=== PATIENT | male | born 1965 | race Caucasian/White ===

== ENCOUNTER → 2020-12-03 17:47 | Outpatient (CLI) | payer MEDICAID, SELFPAY ==
[2020-12-03 18:25] LABS: Basophils # 0.2 K/mm3 (0-0.2); Basophils % 1.5 % (0.1-2.0); Eosinophils # 0.1 K/mm3 (0.0-0.4); Eosinophils % 1.1 % (0.1-12.0); Hematocrit 45.8 % (42.0-52.0); Hemoglobin 14.8 g/dL (14.1-18.0); Lymphocytes # 2.5 K/mm3 (0.7-4.5); Lymphocytes % 20.8 % (10-50); Mean Corpuscular HGB Conc 32.4 g/dL (31.8-35.4); Mean Corpuscular Hemoglobin 28.5 pg (27.0-31.2); Mean Corpuscular Volume 87.8 fl (80-94); Mean Platelet Volume 11.1 fl (7.4-10.4); Monocytes # 0.8 K/mm3 (0.1-1.0); Monocytes % 6.7 % (1.7-9.3); Neutrophils # 8.2 K/mm3 (1.8-7.8); Neutrophils % 69.9 % (37.0-80.0); Platelet Count 420 K/mm3 (142-424); Red Blood Count 5.21 M/mm3 (4.60-6.20); Red Cell Distribution Width 14.6 % (11.5-17.5); White Blood Count 11.8 K/mm3 (4.8-10.8)
[2020-12-03 18:29] LABS: Alanine Aminotransferase 26 U/L (12-78); Albumin Level 4.8 g/dl (3.5-5.0); Albumin/Globulin Ratio 1.8 (1.1-1.8); Alkaline Phosphatase 83 U/L (38-126); Anion Gap 17.6 mEq/L (5-15); Aspartate Amino Transferase 30 U/L (17-59); Bilirubin,Total 0.5 mg/dl (0.2-1.3); Blood Urea Nitrogen 14 mg/dl (9-20); Calcium 9.3 mg/dl (8.4-10.2); Carbon Dioxide 26 mmol/L (22.0-30.0); Chloride 103 mmol/L (98-107); Chol/HDL Ratio 3.4 (1-3.5); Cholesterol 178 mg/dl (140-200); Estimated Glomerular Filt Rate 87 ml/min (>60); GFR (African American) 106 ML/MIN (>60); Globulin 2.7 g/dL (1.3-3.2); Glucose 97 mg/dl (74-100); HDL Cholesterol 52 mg/dl (40-60); Potassium 4.6 mmoL/L (3.5-5.1); Sodium 142 mmol/L (136-145); Total Protein,Serum 7.5 g/dl (6.3-8.2); Triglycerides 95 mg/dl (30-150); VLDL Cholesterol 19 mg/dL (0-40)
[2020-12-03 18:40] LABS: Direct LDL Cholesterol 99.73 mg/dL (100-129)
[2020-12-03 18:46] LABS: 25-OH Vitamin D, Total 23.3 ng/mL (30-100)
[2020-12-03 18:48] LABS: T4 (Thyroxine) 9.7 ug/dl (5.53-11.0)
[2020-12-03 18:59] LABS: Prostate Specific Ag Screen 0.2 ng/ml (0.0-4.0)
[2020-12-03 19:02] LABS: Thyroid Stimulating Hormone 1.66 uIU/mL (0.465-4.68)
== END ==
PROVIDERS: Visit Provider Nurse Practitioner Family
DX: J44.9 Chronic obstructive pulmonary disease, unspecified (principal); R53.83 Other fatigue; E55.9 Vitamin D deficiency, unspecified; Z12.5 Encounter for screening for malignant neoplasm of prostate
CPT/HCPCS: 80053; 80061; 82306; 84436; 84443; 85025; G0103

== ENCOUNTER → 2020-12-18 14:19 | Outpatient (CLI) | payer MEDICAID, SELFPAY | PROVIDERS: PCP Nurse Practitioner Family; Visit Provider Nurse Practitioner Family | DX: R07.9 Chest pain, unspecified (principal) | CPT/HCPCS: 93306 ==

== ENCOUNTER → 2021-03-22 11:40 | Outpatient (CLI) | payer MEDICAID, SELFPAY | PROVIDERS: PCP Nurse Practitioner Family; Visit Provider Nurse Practitioner Family | DX: Z20.822 Contact with and (suspected) exposure to COVID-19 (principal) ==

== ENCOUNTER → 2021-03-22 12:28 | Outpatient (CLI) | payer MEDICAID, SELFPAY | PROVIDERS: Visit Provider Ophthalmology | DX: Z20.822 Contact with and (suspected) exposure to COVID-19 (principal) | CPT/HCPCS: U0003 ==

== ENCOUNTER 2021-03-25 07:13 | Day surgery (SDC) | payer MEDICAID, SELFPAY ==
[2021-03-18 15:56] VITALS: BMI 19.0
[2021-03-25] VITALS (8 sets, daily range): BP systolic 114–129; BP diastolic 61–87; PULSE 72–85; RESP 18–20; TEMP 36.6–36.7; O2SAT 95–99
== END 2021-03-25 10:02 | disposition home or self-care (01) ==
LOC: OR 07:14
PROVIDERS: PCP Nurse Practitioner Family; Visit Provider Ophthalmology
PROC: (CPT 66982; principal; 2021-03-25 09:30)
DX: H25.812 Combined forms of age-related cataract, left eye (principal); H53.8 Other visual disturbances; H21.532 Iridodialysis, left eye
CPT/HCPCS: 66982; V2632

== ENCOUNTER → 2021-04-05 11:02 | Outpatient (CLI) | payer MEDICAID, SELFPAY | PROVIDERS: Visit Provider Ophthalmology | DX: Z20.822 Contact with and (suspected) exposure to COVID-19 (principal) | CPT/HCPCS: U0003 ==

== ENCOUNTER 2021-04-08 08:09 | Day surgery (SDC) | payer MEDICAID, SELFPAY ==
[2021-04-02 11:22] VITALS: BMI 16.1
[2021-04-08] VITALS (7 sets, daily range): BP systolic 111–157; BP diastolic 57–83; PULSE 63–95; RESP 16–18; TEMP 36.1–36.2; O2SAT 93–100
== END 2021-04-08 10:26 | disposition home or self-care (01) ==
LOC: OR 08:11
PROVIDERS: PCP Nurse Practitioner Family; Visit Provider Ophthalmology
PROC: (CPT 66984; principal; 2021-04-08 10:00)
DX: H25.813 Combined forms of age-related cataract, bilateral (principal); H02.831 Dermatochalasis of right upper eyelid; H02.834 Dermatochalasis of left upper eyelid; J45.909 Unspecified asthma, uncomplicated; M19.90 Unspecified osteoarthritis, unspecified site
CPT/HCPCS: 66984; V2632

== ENCOUNTER → 2023-06-22 07:09 | Outpatient (CLI) | payer MEDICAID, SELFPAY | PROVIDERS: PCP Internal Medicine Pulmonary Disease; Visit Provider Internal Medicine Pulmonary Disease | DX: R06.02 Shortness of breath (principal) ==

== ENCOUNTER → 2023-06-22 14:15 | Outpatient (CLI) | payer MEDICAID, SELFPAY ==
[2023-06-22 18:37] LABS: Basophils # 0.4 K/mm3 (0-0.2); Basophils % 3.7 % (0.1-2.0); Eosinophils # 0.9 K/mm3 (0.0-0.4); Eosinophils % 7.4 % (0.1-12.0); Hemoglobin 13.2 g/dL (14.1-18.0); Lymphocytes # 3.9 K/mm3 (0.7-4.5); Lymphocytes % 32.5 % (10-50); Mean Corpuscular HGB Conc 33.1 g/dL (31.8-35.4); Mean Corpuscular Hemoglobin 28.9 pg (27.0-31.2); Mean Corpuscular Volume 87.3 fl (80-94); Mean Platelet Volume 13.2 fl (7.4-10.4); Monocytes # 0.7 K/mm3 (0.1-1.0); Monocytes % 6.1 % (1.7-9.3); Neutrophils % 50.2 % (37.0-80.0); Red Blood Count 4.58 M/mm3 (4.60-6.20); Red Cell Distribution Width 15.8 % (11.5-17.5); White Blood Count 11.9 K/mm3 (4.8-10.8)
[2023-06-22 18:42] LABS: Platelet Count 1377 K/mm3 (142-424)
[2023-06-22 19:29] LABS: Alanine Aminotransferase 23 U/L (12-78); Albumin Level 4.6 g/dl (3.5-5.0); Albumin/Globulin Ratio 1.7 (1.1-1.8); Alkaline Phosphatase 69 U/L (38-126); Anion Gap 17.2 mEq/L (5-15); Aspartate Amino Transferase 30 U/L (17-59); Bilirubin,Total 0.5 mg/dl (0.2-1.3); Blood Urea Nitrogen 11 mg/dl (9-20); Calcium 9.1 mg/dl (8.4-10.2); Carbon Dioxide 23 mmol/L (22.0-30.0); Chloride 104 mmol/L (98-107); Chol/HDL Ratio 3.7 (1-3.5); Cholesterol 123 mg/dl (140-200); Estimated Glomerular Filt Rate 99 ml/min (>60); GFR (African American) 120 ML/MIN (>60); Globulin 2.7 g/dL (1.3-3.2); Glucose 96 mg/dl (74-100); HDL Cholesterol 33 mg/dl (40-60); Sodium 138 mmol/L (136-145); Total Protein,Serum 7.3 g/dl (6.3-8.2); Triglycerides 113 mg/dl (30-150); VLDL Cholesterol 23 mg/dL (0-40)
[2023-06-22 19:41] LABS: Direct LDL Cholesterol 70.99 mg/dL (100-129)
[2023-06-22 19:45] LABS: T4 (Thyroxine) 7.8 ug/dl (5.53-11.0)
[2023-06-22 19:46] LABS: 25-OH Vitamin D, Total 46.1 ng/mL (30-100)
[2023-06-22 19:58] LABS: Prostate Specific Ag Screen 0.3 ng/ml (0.0-4.0); Thyroid Stimulating Hormone 0.72 uIU/mL (0.465-4.68)
[2023-06-22 20:55] LABS: Potassium 6.2 mmoL/L (3.5-5.1)
== END ==
LOC: LAB.DROPOF 07-06 14:16
PROVIDERS: PCP Emergency Medicine; Visit Provider Emergency Medicine
DX: R94.31 Abnormal electrocardiogram [ECG] [EKG] (principal); Z12.5 Encounter for screening for malignant neoplasm of prostate
CPT/HCPCS: 80053; 80061; 82306; 84436; 84443; 85025; G0103

== ENCOUNTER 2023-06-22 23:02 | Emergency (ER) | payer MEDICAID, SELFPAY ==
[2023-06-22 23:11] VITALS: BP 139/77; PULSE 77; RESP 20; TEMP 36.6; O2SAT 95; BMI 16.6
--- NOTE | 2023-06-22 23:18 | ECG_ITS ---
APPROVED REPORT Exam: Resting ECG HR:73 bpm ECG Measurements Heart Rate 73 AXES [place] 128 P 80 QRSd 120 QRS 99 QT 400 T 66 QTc 426 Conclusion SINUS RHYTHM RIGHT BUNDLE BRANCH BLOCK [120+ ms QRS DURATION, UPRIGHT V1, 40+ ms S IN I/aVL/V4/V5/V6] ABNORMAL ECG UNCONFIRMED REPORT Electronically signed by : Trey Jarrell MD 06/26/2023 11:09:24
--- NOTE | 2023-06-22 23:32 | XR_ITS ---
PROCEDURE INFORMATION: Exam: XR Chest Exam date and time: 06/22/2023 11:57 PM Age: 58 years old Clinical indication: Other: Chronic fatigue; Additional info: Chronic fatigue, severe thrombocytosis TECHNIQUE: Imaging protocol: Radiologic exam of the chest. Views: 1 view. COMPARISON: No relevant prior studies available. FINDINGS: Lungs: There is mild coarsening of the bronchovascular markings with hyperinflation suggesting underlying obstructive airways disease. Pleural spaces: Left costophrenic angle is excluded. Heart/Mediastinum: No evidence of mediastinal widening or cardiac silhouette enlargement; the mediastinum and heart appear within normal limits for contour and size. Bones/joints: No evidence of acute osseous abnormalities within the visualized portions of the thoracic spine and ribs. Osseous structures appear appropriate for patient age. IMPRESSION: No dense parenchymal consolidation, pleural effusion, or pneumothorax.
[2023-06-22 23:45] VITALS: BP 144/65; PULSE 64; O2SAT 97
[2023-06-23] VITALS: BP 129/68; PULSE 70; RESP 18; TEMP 37; O2SAT 96
[2023-06-23 00:03] LABS: Basophils # 0.5 K/mm3 (0-0.2); Basophils % 3.7 % (0.1-2.0); Eosinophils # 0.9 K/mm3 (0.0-0.4); Eosinophils % 7.3 % (0.1-12.0); Hematocrit 40.1 % (42.0-52.0); Hemoglobin 13.5 g/dL (14.1-18.0); Lymphocytes # 3.5 K/mm3 (0.7-4.5); Lymphocytes % 27.8 % (10-50); Mean Corpuscular HGB Conc 33.6 g/dL (31.8-35.4); Mean Corpuscular Hemoglobin 28.6 pg (27.0-31.2); Mean Corpuscular Volume 85.1 fl (80-94); Mean Platelet Volume 11.6 fl (7.4-10.4); Monocytes # 0.6 K/mm3 (0.1-1.0); Monocytes % 4.5 % (1.7-9.3); Neutrophils # 7.1 K/mm3 (1.8-7.8); Neutrophils % 56.6 % (37.0-80.0); Red Blood Count 4.71 M/mm3 (4.60-6.20); Red Cell Distribution Width 15.9 % (11.5-17.5); White Blood Count 12.5 K/mm3 (4.8-10.8)
[2023-06-23 00:03] LABS: Microscopic, Urine URINE MICROSCOPIC (MICROSCOPIC)
[2023-06-23 00:04] LABS: Platelet Count 1379 K/mm3 (142-424)
[2023-06-23 00:09] LABS: Prothrombin Time 12.8 seconds (10.1-12.5)
[2023-06-23 00:10] LABS: Alanine Aminotransferase 27 U/L (12-78); Albumin Level 4.9 g/dl (3.5-5.0); Albumin/Globulin Ratio 1.5 (1.1-1.8); Alkaline Phosphatase 69 U/L (38-126); Anion Gap 14.6 mEq/L (5-15); Aspartate Amino Transferase 33 U/L (17-59); Bilirubin,Total 0.4 mg/dl (0.2-1.3); Blood Urea Nitrogen 13 mg/dl (9-20); Carbon Dioxide 30 mmol/L (22.0-30.0); Chloride 102 mmol/L (98-107); Creatinine Clearance Estimated 51 mL/min (50-200); Estimated Glomerular Filt Rate 76 ml/min (>60); GFR (African American) 93 ML/MIN (>60); Globulin 3.3 g/dL (1.3-3.2); Glucose 117 mg/dl (74-100); Potassium 3.6 mmoL/L (3.5-5.1); Sodium 143 mmol/L (136-145); Total Protein,Serum 8.2 g/dl (6.3-8.2)
[2023-06-23 00:15] LABS: Appearance,Urine CLEAR (Clear); Bilirubin,Urine Negative (Negative); Blood, Urine Negative (Negative); Color,Urine YELLOW (Yellow); Glucose,Urine (UA) Negative (Negative); Ketones,Urine Negative (Negative); Leukocyte Esterase,Urine Negative (Negative); Nitrate,Urine Negative (Negative); Protein,Urine Negative (Negative); Specific Gravity, Urine >= 1.030 (1.005-1.030)
[2023-06-23 00:23] LABS: Activated Partial Thrombo Time 31.6 seconds (22.8-30.6)
[2023-06-23 00:30] VITALS: BP 128/69; PULSE 69; RESP 18; O2SAT 97
--- NOTE | 2023-06-23 00:34 | HMH.EDGENADL ---
Discharge Plan Disposition Patient Disposition: Home, Self-Care Prescriptions Prescriptions: No Action ipratropium-albuterol 0.5 mg-3 mg(2.5 mg base)/3 mL solution for nebulization 3 ml inhalation Q4-6H PRN (Reason: shortness of breath or wheezing) Qty: 180 1RF Stiolto Respimat 2.5-2.5 mcg/actuation mist 2 puff inhalation DAILY 90 Days Qty: 4 2RF albuterol sulfate 8.5 GM HFA aerosol inhaler 8.5 g INHALATION WEEKLY Patient Comments: INHALE 2 PUFFS EVERY 4-6 HOURS As Needed for shortness of breath or wheezing Referrals Follow up/Referrals: Katey Holland MD [Staff Physician] - 7-14 days Alden Jones MD [Primary Care Provider] - See instructions Activity Restrictions/Add. Instructions Additional Instructions/Restrictions: Please follow-up with your primary care provider and with Dr. Holland the oncologist for further work up of your elevated platelet count. Dr. Holland's number is [phone]. Please return to the emergency department if you develop any new or worsening symptoms or become concerned for your health. Please begin taking aspirin 81 mg daily for prevention of clots. Clinical Impressions Clinical Impression: Thrombocytosis Discharge ED Provider: Alexander Winters Adult HPI General Chief complaint: Recheck/Abnormal Lab/Rx Stated complaint: sent by dary high potassium Time Seen by Provider: 06/22/23 23:13 Mode of Arrival: Ambulatory Source of Information: Patient Limitations: No Limitations Description of Symptoms (Recalled from ER Triage Doc. by RN): pt states about three hours ago he received a call stating his potassium was high. upon looking at the chart the pts K was 6.2 and platelets 1377. pt has no complaints at this time. History of Present Illness HPI narrative: 58-year-old male, reported history of COPD presents with abnormal labs from clinic. He had blood work drawn today and was noted to have hyperkalemia and platelets of over 1300. Patient reports that he has had chronic shortness of breath for the last year. Patient reports that his weight has gone up and down over the last year, currently he is down 10 pounds from last year, he was skinny to begin with, this weight loss was not on purpose. Patient denies any intermittent fevers, denies nausea vomiting. Reports chronic intermittent chest pain, denies any chest pain recently. Reports intermittent abdominal pain, denies any current abdominal pain. Reports no noted lymphadenopathy, no easy bruising or bleeding. He has had no recent illness. Related Data Home Medications Medication Instructions Recorded Confirmed albuterol sulfate 90 mcg/actuation 8.5 g inhalation WEEKLY COPD 03/25/21 06/22/23 aerosol inhaler Previous Rx's Medication Instructions Recorded ipratropium 0.5 mg-albuterol 3 mg 3 ml inhalation Q4-6H PRN 05/24/23 (2.5 mg base)/3 mL nebulization shortness of breath or wheezing soln #180 mL tiotropium 2.5 mcg-olodaterol 2.5 2 puff inhalation DAILY 90 days #4 06/14/23 mcg/actuation mist for inhalation grams (Stiolto Respimat) Allergies Allergy/AdvReac Type Severity Reaction Status Date / Time No Known Allergies Allergy Verified 06/22/23 14:13 [facility] Disclaimer: The information contained in this section may have been updated after the patient was seen, as this information can be updated by other users. Medical History Abnormal EKG Chest pain COPD (chronic obstructive pulmonary disease) Dyspnea Dyspnea on exertion Encounter for screening for malignant neoplasm of lung Gastroesophageal reflux disease History of smoking 30 or more pack years Pulmonary emphysema Tobacco dependence syndrome Surgical History History of cataract surgery Family History Other Asthma COPD (chronic obstructive pulmonary disease) Cancer Diabe
[2023-06-23 00:38] VITALS: BP 128/69; PULSE 68; RESP 18; TEMP 36.5
[2023-06-23 00:41] LABS: Bacteria,Urine 1+ /lpf; Mucus,Urine 2+ /lpf; WBC,Urine Occasional #/hpf (0-3)
[2023-06-23 02:12] LABS: Ferritin 195 ng/ml (17.9-464)
[2023-06-24 23:45] LABS: Peripheral Smear Review Scanned Result
== END 2023-06-23 00:39 | disposition home or self-care (01) ==
PROVIDERS: Emergency Provider Emergency Medicine; PCP Emergency Medicine
DX: E87.5 Hyperkalemia (principal); D75.839 Thrombocytosis, unspecified; J44.9 Chronic obstructive pulmonary disease, unspecified; R06.02 Shortness of breath; R07.9 Chest pain, unspecified; I45.19 Other right bundle-branch block
CPT/HCPCS: 71045; 80053; 81001; 82728; 85025; 85610; 85730; 93005; 99285

== ENCOUNTER → 2023-07-01 15:02 | Outpatient (CLI) | payer MEDICAID, SELFPAY ==
[2023-07-01 15:59] LABS: Basophils # 0.4 K/mm3 (0-0.2); Eosinophils # 1.1 K/mm3 (0.0-0.4); Eosinophils % 8.5 % (0.1-12.0); Hematocrit 40.6 % (42.0-52.0); Hemoglobin 13.4 g/dL (14.1-18.0); Lymphocytes # 3.8 K/mm3 (0.7-4.5); Lymphocytes % 28.9 % (10-50); Mean Corpuscular HGB Conc 33.1 g/dL (31.8-35.4); Mean Corpuscular Hemoglobin 28.5 pg (27.0-31.2); Mean Platelet Volume 11.6 fl (7.4-10.4); Monocytes # 0.8 K/mm3 (0.1-1.0); Neutrophils # 7.1 K/mm3 (1.8-7.8); Neutrophils % 53.6 % (37.0-80.0); Red Blood Count 4.72 M/mm3 (4.60-6.20); Red Cell Distribution Width 15.9 % (11.5-17.5); White Blood Count 13.2 K/mm3 (4.8-10.8)
[2023-07-01 16:20] LABS: Platelet Count 1511 K/mm3 (142-424)
[2023-07-01 16:27] LABS: Anion Gap 17.6 mEq/L (5-15); Blood Urea Nitrogen 13 mg/dl (9-20); Calcium 9.6 mg/dl (8.4-10.2); Carbon Dioxide 27 mmol/L (22.0-30.0); Chloride 105 mmol/L (98-107); Estimated Glomerular Filt Rate 86 ml/min (>60); GFR (African American) 105 ML/MIN (>60); Glucose 84 mg/dl (74-100); Sodium 143 mmol/L (136-145)
[2023-07-01 16:44] LABS: Potassium 6.6 mmoL/L (3.5-5.1)
[2023-07-03 15:07] LABS: Peripheral Smear Review Scanned Result
== END ==
PROVIDERS: PCP Physician Assistant; Visit Provider Physician Assistant
DX: D75.839 Thrombocytosis, unspecified (principal)
CPT/HCPCS: 36415; 80048; 85025

== ENCOUNTER → 2023-07-02 08:30 | Outpatient (CLI) | payer MEDICAID, SELFPAY ==
[2023-07-02 19:00] LABS: Basophils # 0.4 K/mm3 (0-0.2); Basophils % 3.3 % (0.1-2.0); Eosinophils # 1.3 K/mm3 (0.0-0.4); Eosinophils % 9.4 % (0.1-12.0); Hematocrit 40.1 % (42.0-52.0); Hemoglobin 13.3 g/dL (14.1-18.0); Lymphocytes # 4.5 K/mm3 (0.7-4.5); Lymphocytes % 33.2 % (10-50); Mean Corpuscular HGB Conc 33.2 g/dL (31.8-35.4); Mean Corpuscular Hemoglobin 29.1 pg (27.0-31.2); Mean Corpuscular Volume 87.5 fl (80-94); Mean Platelet Volume 12.7 fl (7.4-10.4); Monocytes # 0.7 K/mm3 (0.1-1.0); Monocytes % 4.9 % (1.7-9.3); Neutrophils # 7.1 K/mm3 (1.8-7.8); Neutrophils % 52.5 % (37.0-80.0); Red Blood Count 4.58 M/mm3 (4.60-6.20); Red Cell Distribution Width 15.9 % (11.5-17.5); White Blood Count 13.5 K/mm3 (4.8-10.8)
[2023-07-02 19:01] LABS: Platelet Count 1466 K/mm3 (142-424)
[2023-07-02 19:08] LABS: Anion Gap 16.7 mEq/L (5-15); Blood Urea Nitrogen 11 mg/dl (9-20); Calcium 9.5 mg/dl (8.4-10.2); Carbon Dioxide 26 mmol/L (22.0-30.0); Chloride 105 mmol/L (98-107); Estimated Glomerular Filt Rate 86 ml/min (>60); GFR (African American) 105 ML/MIN (>60); Glucose 101 mg/dl (74-100); Potassium 5.7 mmoL/L (3.5-5.1); Sodium 142 mmol/L (136-145)
[2023-07-04 18:54] LABS: Peripheral Smear Review Scanned Result
== END ==
PROVIDERS: Physician Assistant; PCP Emergency Medicine; Visit Provider Emergency Medicine
DX: R89.9 Unspecified abnormal finding in specimens from other organs, systems and tissues (principal)
CPT/HCPCS: 80048; 85025

== ENCOUNTER → 2023-07-21 06:26 | Outpatient (CLI) | payer MEDICAID, SELFPAY ==
--- NOTE | 2023-07-21 | CA_ITS ---
APPROVED REPORT Exam: Pharmacologic Technologist: Bárbara Clancy Ht: 5 ft 6 in Wt: 99 lbs BSA: 1.48 m2 HR: 67 bpm BP: 137/69 mmHg Rhythm: NSR Indications: Dizziness, Fatigue Medical History Medications: Albuterol,,,,, StIOLto,,,,, Stress Test Details Test: LEXISCAN HR Resting HR: 68 bpm Max Heart Rate (APMHR): 161 bpm Max HR Achieved: 93 bpm Target HR (85% APMHR): 137 bpm % of APMHR: 58 Recovery HR: 81 bpm BP Resting BP: 137.0/69.0 mmHg Max BP: 157.0/72.0 mmHg Recovery BP: 145.0/70.0 mmHg ECG Resting ECG: Normal sinus rhythm, Right bundle branch block, rightward axis, PVC's, NS ST abnormalities inferiorly. Stress ECG: No significant ST changes Arrhythmia: PVCs Clinical Exercise duration: 04:00 min Highest Stage Achieved: Exercise capacity: 1.0 METs Stress ECG Conclusion Symptoms: Shortness of air. Mild stomach discomfort, head discomfort. No chest pain. Arrhythmias/Ectopy: Occasional PVCs ST-T Changes: No significant ST changes inferiorly. Conclusion: Non-diagnostic Lexiscan stress. Myoview images reported separately. Test Summary REST . . . . . . . Resting REST 05:02 . . 68 . 137/ 69 . . Stage 1 . . . . . . . Myoview Injected Stage 1 01:00 . . 80 . . . . Stage 2 01:00 . . 85 . 150/ 75 . . Stage 3 01:00 . . 92 . 139/ 74 . . Stage 4 01:00 . . 88 . 136/ 72 . Stop exercise at 04:00 RECOVERY 01:00 . . 85 . . . . RECOVERY 02:00 . . 82 . 157/ 72 . . RECOVERY 03:00 . . 82 . 145/ 70 . . RECOVERY 03:19 . . 83 . 145/ 70 . . Electronically signed by : Lynda Demarco MD 07/21/2023 14:50:30
--- NOTE | 2023-07-21 06:31 | NM_ITS ---
APPROVED REPORT Exam: Nuclear Stress Test Indication: chest pain..soa..fatigue Patient Location: Outpatient Stress Tech: Bárbara Clancy [place] Tech:Chikis Mahan JOSEAmador RT(R)(N) Ht: 5 ft 5 in Wt: 100 lbs HR: 68 bpm BP: 137/69 mmHg BSA: 1.47 m2 TID: 1.14 BMI: 16.6 History: chest pain..soa..fatigue Procedure: Patient received 0.4 mg of intravenous Lexiscan, resting heart rate 68 bpm, resting blood pressure 137/69 mmHg, with Lexiscan maximum heart rate achieved was 93 bpm which is 85 % of the maximum predicted heart rate and blood pressure was 157/72 mmHg. With Lexiscan, patient denied any complaint of chest pain. Cardiac Stress and Resting SPECT Images: Cardiac Stress and Resting SPECT images were obtained using technetium 99m Myoview 30.4 mCi stress and 10.40 mCi at rest. Raw images demonstrate possible dilation of the right ventricle. Resting and stress imaging supine and prone positions demonstrate a large sized, moderate, fixed perfusion defect in the septal, anteroseptal, and inferoseptal LV garcia involving the LV apex. Gated imaging demonstrates low normal global LV systolic function. There is moderate hypokinesis of the septal LV wall. LVEF is calculated at 52%. Conclusion: Raw images demonstrate possible dilation of the right ventricle. Large sized, moderate, fixed perfusion defect in the septal, anteroseptal, and inferoseptal LV garcia involving the LV apex. No evidence of reversible ischemia. Gated imaging demonstrates low normal global LV systolic function. There is moderate hypokinesis of the septal LV wall. LVEF is calculated at 52%. Further evaluation of the possible RV dilation is recommended with TTE. Electronically signed by : Lynda Demarco MD 07/21/2023 14:53:37
== END ==
PROVIDERS: PCP Emergency Medicine; Visit Provider Physician Assistant
DX: J44.9 Chronic obstructive pulmonary disease, unspecified (principal); R06.00 Dyspnea, unspecified; R07.9 Chest pain, unspecified; R94.31 Abnormal electrocardiogram [ECG] [EKG]
CPT/HCPCS: 78452; 93017; A9502; J2785

== ENCOUNTER → 2023-07-23 10:53 | Outpatient (CLI) | payer MEDICAID, SELFPAY ==
[2023-07-23 11:52] LABS: Basophils # 0.4 K/mm3 (0-0.2); Basophils % 3.6 % (0.1-2.0); Eosinophils # 1.1 K/mm3 (0.0-0.4); Hematocrit 39.5 % (42.0-52.0); Hemoglobin 12.9 g/dL (14.1-18.0); Lymphocytes # 3.5 K/mm3 (0.7-4.5); Mean Corpuscular HGB Conc 32.7 g/dL (31.8-35.4); Mean Corpuscular Hemoglobin 28.5 pg (27.0-31.2); Mean Platelet Volume 11.3 fl (7.4-10.4); Monocytes # 0.6 K/mm3 (0.1-1.0); Monocytes % 5.1 % (1.7-9.3); Neutrophils # 5.7 K/mm3 (1.8-7.8); Neutrophils % 50.3 % (37.0-80.0); Red Blood Count 4.54 M/mm3 (4.60-6.20); Red Cell Distribution Width 15.9 % (11.5-17.5); White Blood Count 11.3 K/mm3 (4.8-10.8)
[2023-07-23 11:53] LABS: Platelet Count 1475 K/mm3 (142-424)
[2023-07-23 12:02] LABS: Activated Partial Thrombo Time 31.6 seconds (22.8-30.6); INR 1.25 (0.9-1.1); Prothrombin Time 13.3 seconds (10.1-12.5)
[2023-07-23 12:47] LABS: Iron 159 ug/dL (49-181)
[2023-07-23 12:57] LABS: Total Iron Binding Capacity 276 ug/dL (261-462)
[2023-07-23 13:25] LABS: Ferritin 170 ng/ml (17.9-464)
== END ==
LOC: LAB 10:54
PROVIDERS: PCP Emergency Medicine; Visit Provider Internal Medicine Medical Oncology
DX: D75.839 Thrombocytosis, unspecified (principal)
CPT/HCPCS: 36415; 82728; 83540; 83550; 85025; 85610; 85730

== ENCOUNTER → 2023-07-28 14:09 | Outpatient (CLI) | payer MEDICAID, SELFPAY ==
--- NOTE | 2023-07-28 14:19 | CT_ITS ---
FINAL REPORT TECHNIQUE: Axial images were obtained from the lung apex to the mid abdomen by computed tomography. This study was performed with techniques to keep radiation doses as low as reasonably achievable (ALARA). Individualized dose reduction techniques using automated exposure control or adjustment of mA and/or kV according to the patient's size were employed. CLINICAL HISTORY: lung cancer screening Patient quit smoking 1.5 years ago, he smoke 1.5 packs a day for 45 years. 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 He is currently exposed to second hand smoke. He states he has emphysema. FINDINGS: CHEST CT LOW DOSE CTDI vol (mGy): 2.90 DLP (mGy-cm): 119.33 There is no axillary adenopathy. There is no hilar or mediastinal adenopathy. The heart is normal in size. There is no pericardial or pleural effusion. There is bilateral pleural and parenchymal scarring. There are advanced changes of centrilobular emphysema. Lung window images demonstrate no suspicious infiltrate or nodule. Limited images of the upper abdomen are unremarkable. IMPRESSION: Advanced changes of centrilobular emphysema. Lung RADS category 1S. Recommend 12 month follow-up low-dose chest CT. Reviewed, Interpreted and Dictated by Abraham Pandey MD Transcribed by Amber Chavarria Authenticated and [facility]
[2023-07-28 15:40] VITALS: PULSE 80; PULSE 85
== END ==
PROVIDERS: PCP Emergency Medicine; Visit Provider Internal Medicine Pulmonary Disease
DX: R06.09 Other forms of dyspnea (principal); F17.210 Nicotine dependence, cigarettes, uncomplicated
CPT/HCPCS: 71271; 94060; 94618; 94640; 94727; 94729

== ENCOUNTER 2023-10-20 10:56 | Outpatient (CLI) | payer MEDICAID, SELFPAY ==
[2023-10-28 10:13] LABS: Alpha-1-Antitrypsin 166 mg/dL (101-187)
== END 2023-10-20 23:59 ==
LOC: LAB 10:57
PROVIDERS: PCP Nurse Practitioner Family; Visit Provider Internal Medicine Pulmonary Disease
DX: J44.9 Chronic obstructive pulmonary disease, unspecified (principal); Z87.891 Personal history of nicotine dependence
CPT/HCPCS: 36415; 82103; 82104

== ENCOUNTER 2024-04-15 17:49 | Emergency (ER) | payer MEDICAID, SELFPAY ==
[2024-04-15 17:50] VITALS: BP 111/81; PULSE 138; RESP 24; TEMP 36.9; O2SAT 100; BMI 16.6
--- NOTE | 2024-04-15 17:50 | ECG_ITS ---
APPROVED REPORT Exam: Resting ECG HR:138 bpm ECG Measurements Heart Rate 138 AXES TN 110 P 84 QRSd 101 QRS 97 QT 328 T -43 QTc 408 Conclusion SINUS TACHYCARDIA WITH SHORT TN INTERVAL BORDERLINE RIGHT AXIS DEVIATION [QRS AXIS > 90] INCOMPLETE RIGHT BUNDLE BRANCH BLOCK [90+ ms QRS DURATION, TERMINAL R IN V1/V2, 40+ ms S IN I/aVL/V4/V5/V6] ST DEVIATION AND MODERATE T-WAVE ABNORMALITY, CONSIDER ANTERIOR ISCHEMIA [-0.1+ mV T-WAVE IN V3/V4] ST DEVIATION AND MODERATE T-WAVE ABNORMALITY, CONSIDER INFERIOR ISCHEMIA [-0.1+ mV T-WAVE IN II/aVF] ABNORMAL ECG UNCONFIRMED REPORT Electronically signed by : FERNANDO PANIAGUA, 04/16/2024 06:48:10
[2024-04-15 17:52] VITALS: BMI 16.6
--- NOTE | 2024-04-15 17:53 | PC.NURSE ---
Notified RT of VBG order
[2024-04-15 17:56] VITALS: PULSE 137; RESP 20; O2SAT 100
[2024-04-15] MEDS: ASPIRIN 81MG CHEWABLE TABLET 324 MG PO (18:00)
[2024-04-15] MEDS: MORPHINE 4MG/ML SYRINGE 4 MG IV (18:00)
[2024-04-15] MEDS: ONDANSETRON 4MG/2ML VIAL 4 MG IV (18:00)
[2024-04-15 18:01] VITALS: BP 122/69; PULSE 134; RESP 19; O2SAT 100
[2024-04-15 18:06] LABS: VBG Base Excess -5.1 mmol/L (-2.4-2.3); VBG HCO3 21.3 mmol/L (23-30); VBG Oxygen Saturation 61.1 % (50-70); VBG PCO2 44.1 mmol/L (35-51); VBG PO2 34.2 mmol/L (28-40); VBG Total CO2 22.6 mmol/L (23-27)
[2024-04-15 18:07] LABS: Albumin Level 4.2 g/dl (3.5-5.0); Chloride 104 mmol/L (98-107); Potassium 4.7 mmoL/L (3.5-5.1); Sodium 136 mmol/L (136-145)
[2024-04-15 18:07] LABS: Lactate Venous 3.4 mmol/L (0.4-2.0)
[2024-04-15 18:10] LABS: Alanine Aminotransferase 29 U/L (12-78); Albumin/Globulin Ratio 1.8 (1.1-1.8); Alkaline Phosphatase 58 U/L (38-126); Anion Gap 13.7 mEq/L (5-15); Aspartate Amino Transferase 27 U/L (17-59); Bilirubin,Total 0.8 mg/dl (0.2-1.3); Blood Urea Nitrogen 42 mg/dl (9-20); Calcium 8.4 mg/dl (8.4-10.2); Carbon Dioxide 23 mmol/L (22.0-30.0); Creatinine Clearance Estimated 46 mL/min (50-200); Estimated Glomerular Filt Rate 69 ml/min (>60); GFR (African American) 83 ML/MIN (>60); Globulin 2.4 g/dL (1.3-3.2); Glucose 206 mg/dl (74-100); Total Protein,Serum 6.6 g/dl (6.3-8.2)
--- NOTE | 2024-04-15 18:16 | PC.NURSE ---
CALLED [facility] FOR [facility] TRANSFER SPEAKING WITH
[2024-04-15] MEDS: LACTATED RINGERS 1000ML 1,000 ML 999 ML IV ×2 (18:20→18:21)
[2024-04-15 18:21] LABS: Basophils # 0.7 K/mm3 (0-0.2); Basophils % 2.7 % (0.1-2.0); Eosinophils # 0.7 K/mm3 (0.0-0.4); Eosinophils % 2.7 % (0.1-12.0); Hematocrit 29.4 % (42.0-52.0); Hemoglobin 9.2 g/dL (14.1-18.0); Lymphocytes # 6.9 K/mm3 (0.7-4.5); Lymphocytes % 28.4 % (10-50); Mean Corpuscular HGB Conc 31.4 g/dL (31.8-35.4); Mean Corpuscular Hemoglobin 28.2 pg (27.0-31.2); Mean Corpuscular Volume 89.7 fl (80-94); Mean Platelet Volume 12.4 fl (7.4-10.4); Monocytes # 0.9 K/mm3 (0.1-1.0); Monocytes % 3.8 % (1.7-9.3); Neutrophils % 62.3 % (37.0-80.0); Red Blood Count 3.28 M/mm3 (4.60-6.20); Red Cell Distribution Width 16.8 % (11.5-17.5); White Blood Count 24.1 K/mm3 (4.8-10.8)
--- NOTE | 2024-04-15 18:25 | ED_ITS ---
Discharge Plan Disposition Patient Disposition: Xfer Short-Term Hosp Prescriptions Prescriptions: No Action albuterol sulfate 90 mcg/actuation HFA aerosol inhaler 2 inh inhalation QID PRN (Reason: shortness of breath or wheezing) 90 Days Qty: 8.5 2RF ipratropium-albuterol 0.5 mg-3 mg(2.5 mg base)/3 mL solution for nebulization 3 ml inhalation Q4-6H PRN (Reason: shortness of breath or wheezing) Qty: 180 1RF Bevespi Aerosphere 9-4.8 mcg HFA aerosol inhaler See Rx Instructions .ROUTE .COMPLEX Qty: 10.7 3RF Dose Instruction: inhale 2 puffs twice a day Rx Instructions: inhale 2 puffs twice a day albuterol sulfate 8.5 GM HFA aerosol inhaler 8.5 g INHALATION WEEKLY Patient Comments: INHALE 2 PUFFS EVERY 4-6 HOURS As Needed for shortness of breath or wheezing Referrals Follow up/Referrals: Tab Wong DO [Primary Care Provider] - See instructions Clinical Impressions Clinical Impression: UGIB (upper gastrointestinal bleed), COPD (chronic obstructive pulmonary disease), Acute electrocardiogram changes Stand Alone Forms Stand Alone Forms: Transfer Record - ED Print Language Print Language: [place] Discharge ED Provider: Yash Bui General Adult HPI General Chief complaint: Shortness of Breath/Dyspnea Stated complaint: SOA Time Seen by Provider: 04/15/24 17:50 Mode of Arrival: EMS Source of Information: Patient Limitations: No Limitations Description of Symptoms (Recalled from ER Triage Doc. by RN): pt presents to ED with c/o shortness of breath. pt reports he has shortness of breath often but two nights ago he did not wear his oxygen at night and pt reports that he has had increasing shortness of breath since then. pt wears 2L NC at baseline. pt does see dr christie here at [facility]. History of Present Illness HPI narrative: Patient is a 58-year-old male with past medical history of COPD mixed type on 2 L nasal cannula at home who presents emergency department for evaluation of melena. Onset was 2 weeks ago. Patient has had multiple dark black bowel movements and epigastric discomfort. He has not vomited any blood. He has chronic chest pain shortness of breath that is at his baseline, his oxygen is at his baseline. He called 911 who in route gave a DuoNeb however his heart rate was 140 upon arrival prior to this. He used to drink multiple beers a day for 30 years, no intake currently. No other acute complaints at this time Related Data Home Medications ?Medication ?Instructions ?Recorded ?Confirmed albuterol sulfate 90 mcg/actuation 8.5 g inhalation WEEKLY COPD 03/25/21 10/20/23 aerosol inhaler Previous Rx's ?Medication ?Instructions ?Recorded albuterol sulfate 90 mcg/actuation 2 inh inhalation QID PRN shortness 12/23/23 aerosol inhaler of breath or wheezing 90 days #8.5 grams ipratropium 0.5 mg-albuterol 3 mg 3 ml inhalation Q4-6H PRN 12/23/23 (2.5 mg base)/3 mL nebulization shortness of breath or wheezing soln #180 mL glycopyrrolate 9 mcg-formoterol See Rx Instructions .Route 01/18/24 4.8 mcg HFA aerosol inhaler .COMPLEX #10.7 grams (Bevespi Aerosphere) Allergies Allergy/AdvReac Type Severity Reaction Status Date / Time No Known Allergies Allergy Verified 10/20/23 10:27 [facility] Disclaimer: The information contained in this section may have been updated after the patient was seen, as this information can be updated by other users. Medical History (Updated 04/15/24 @ 18:32 by Yash Bui MD) COPD mixed type Right ventricular dilation Encounter for screening for malignant neoplasm of lung History of smoking 30 or more pack years Dyspnea on exertion Pulmonary emphysema Dyspnea Abnormal EKG COPD (chronic obstructive pulmonary disease) Tobacco dependence syndrome Gastroesophageal reflux disease Chest pain Surgical History History of cataract surgery Family History Other Asthma COPD (chronic obstructive pulmonary disease) Cancer Diabetes Heart attack Stroke Social History Smoking Status: Current every day smoker tobacco type: cigarettes packs per day: 1 second hand exposure: No alcohol intake: never substance use type: marijuana current occupational status: disabled Travel in the last 8 weeks: None household members: none housing: house current occupational exposures/hazards: No caffeine: Yes ROS Obtained: Yes Systems reviewed as appropriate & no additional complaints except as documented Physical Exam General General appearance: alert, in no apparent distress and other (Cachectic) Head Head exam: atraumatic and normocephalic Eye Eye exam: Present PERRL ENT ENT exam: Present mucous membranes moist Neck Neck exam: Present normal inspection Chest Chest inspection: Present normal inspection and symmetric chest wall rise Respiratory Respiratory exam: Present normal lung sounds bilaterally and other (Tachypnea); Absent respiratory distress Cardiovascular Cardiovascular exam: Present normal rhythm and tachycardia Abdominal Exam Abdominal exam: Present soft and tenderness (Mild, epigastric); Absent rebound or rigidity Extremities Exam Extremities exam: Present normal inspection Neurological Exam Neurological exam: Present alert Psychiatric Psychiatric exam: Present normal affect Skin Skin exam: Present warm and dry Medical Decision Making Rolando Inquiry Pt receiving controlled substance: No Vital Signs: 04/15/24 17:50 04/15/24 17:56 04/15/24 18:01 Temperature 98.4 F Temperature Source Oral Pulse Rate 137 H 134 H Pulse Rate [Left Radial] 138 H Respiratory Rate 24 20 19 Blood Pressure 122/69 Blood Pressure [Right Arm] 111/81 Blood Pressure Mean [Right Arm] 91 02 Sat by Pulse Oximetry 100 100 100 Oxygen Delivery Method Nasal Cannula Nasal Cannula Nasal Cannula Oxygen Flow Rate (LPM) 4 4 04/15/24 18:38 Temperature Temperature Source Pulse Rate 114 H Pulse Rate [Left Radial] Respiratory Rate 16 Blood Pressure 110/65 Blood Pressure [Right Arm] Blood Pressure Mean [Right Arm] 02 Sat by Pulse Oximetry 100 Oxygen Delivery Method Nasal Cannula Oxygen Flow Rate (LPM) Lab Data Lab Results 04/15/24 17:51: WBC 24.1 H*, RBC 3.28 L, Hgb 9.2 L, Hct 29.4 L, MCV 89.7, MCH 28.2, MCHC 31.4 L, RDW 16.8, Plt Count 1146 H*, MPV 12.4 H, Neut % (Auto) 62.3, Lymph % (Auto) 28.4, [place] % (Auto) 3.8, Eos % (Auto) 2.7, Baso % (Auto) 2.7 H, N eut # (Auto) 15.0 H, Lymph # (Auto) 6.9 H, [place] # (Auto) 0.9, Eos # (Auto) 0.7 H , Baso # (Auto) 0.7 H, Sodium 136, Potassium 4.7, Chloride 104, Carbon Dioxide 23, Anion Gap 13.7, BUN 42 H, Creatinine 1.10, Estimated Creat Clear 46, Estimated GFR 69, Est GFR ( Amer) 83, Glucose 206 H, Calcium 8.4, Total Bilirubin 0.8, AST 27, ALT 29, Alkaline Phosphatase 58, Troponin I < 0.01, Total Protein 6.6, Albumin 4.2, Globulin 2.4, Albumin/Globulin Ratio 1.8, Lipase 37 04/15/24 17:57: VBG pH 7.30 L, VBG pCO2 44.1, VBG pO2 34.2, VBG HCO3 21.3 L, VBG Total CO2 22.6 L, VBG O2 Saturation 61.1, VBG Base Excess -5.1 L, VBG Lactic Acid 3.4 H 04/15/24 17:51 04/15/24 17:51 Orders (Tests/Meds): ED MEDICATIONS Generic Name Dose Route Start Last Admin Trade Name Freq PRN Reason Stop Dose Admin Lactated Ringer's 1,000 mls @ 999 mls/hr 04/15/24 18:18 04/15/24 18:20 Lactated Ringer's 1000 Ml Bag IV 04/15/24 19:18 999 mls/hr .Q1H1M ONE Administration Lactated Ringer's 1,000 mls @ 999 mls/hr 04/15/24 18:19 04/15/24 18:21 Lactated Ringer's 1000 Ml Bag IV 04/15/24 19:19 999 mls/hr .Q1H1M ONE Administration Octreotide Acetate 500 mcg/ 255 mls @ 25.5 mls/hr 04/15/24 18:30 04/15/24 18:50 Sodium Chloride IV 05/15/24 18:29 25.5 mls/hr .Q10H SEFERINO Administration 50 MCG/HR Pantoprazole Sodium 80 mg/ 100 mls @ 100 mls/hr 04/15/24 18:21 04/15/24 18:41 Sodium Chloride IV 04/15/24 19:20 100 mls/hr ONCE ONE Administration Pantoprazole Sodium 80 mg/ 100 mls @ 10 mls/hr 04/15/24 18:30 04/15/24 18:44 Sodium Chloride IV 04/18/24 18:29 10 mls/hr .Q10H SEFERINO Administration Discontinued Medications Generic Name Dose Route Start Last Admin Trade Name Weston PRN Reason Stop Dose Admin Aspirin 324 mg 04/15/24 17:56 04/15/24 18:00 Aspirin 81mg Chewable Tablet PO 04/15/24 17:57 324 mg ONCE ONE Administration Ceftriaxone Sodium 1 gm/ 50 mls @ 100 mls/hr 04/15/24 18:21 04/15/24 18:34 Sodium Chloride IV 04/15/24 18:50 100 mls/hr ONCE ONE Administration Octreotide Acetate 50 mcg/ 51 mls @ 102 mls/hr 04/15/24 18:21 04/15/24 18:43 Sodium Chloride IV 04/15/24 18:22 102 mls/hr ONCE ONE Administration Morphine Sulfate 4 mg 04/15/24 17:56 04/15/24 18:00 Morphine 4mg/Ml Syringe IV 04/15/24 17:57 4 mg ONCE ONE Administration Ondansetron HCl 4 mg 04/15/24 17:57 04/15/24 18:00 Ondansetron 4mg/2ml Vial IV 04/15/24 17:58 4 mg ONCE ONE Administration ORDERS Category Date Time Status POCUS Point of Care (ER Only) Stat Exams 04/15/24 17:58 Completed CBC w/Auto Diff [Complete Blood Count Auto Diff] Stat Lab 04/15/24 17:51 Results CMP [Comprehensive Metabolic Panel] Stat Lab 04/15/24 17:51 Completed Lipase Stat Lab 04/15/24 17:51 Completed Trop I [Troponin I] Stat Lab 04/15/24 17:51 Completed Troponin I Q3H Lab 04/15/24 21:00 Ordered Troponin I Q3H Lab 04/16/24 00:00 Ordered VBG [Venous Blood Gas] Stat RT 04/15/24 17:57 Completed ECG Data Tracing #1: Independently interpreted by me rate is 138, rhythm is regular, axis is borderline rightward deviated, ST depression in the lateral inferior leads, isolated borderline ST elevation in aVL. QTc 408. HEART Score History (anamnesis): Highly suspicious ECG: Significant ST-deviation Age: 45-65 years Risk factors: 1-2 risk factors Troponin: </= normal limit HEART Score: 6 Medical Decision Narrative: In summary patient is a 58-year-old male with past medical history described above who presents emergency department for evaluation of melena and tachycardia. Patient is hemodynamically stable upon arrival blood pressure rivas however has significant tachycardia heart rate in the 140s. He is afebrile. I suspect the patient has undifferentiated upper GI bleed. Given previous alcohol history variceal bleed is on the differential. Peptic ulcer disease is also on the differential as well as other causes of upper GI bleed. With respect to his chest pain he has chronic chest pain and shortness of breath which is at his baseline. EKG at bedside shows significant ST deviation specifically ST depression in the lateral inferior leads. The case was discussed with Dr. Clancy who agrees this is likely rate dependent ischemia. 2 large-bore IVs will be anchored. 1 L of crystalloid will be pressure bag given. [id number] ultrasound at bedside shows grossly normal ejection fraction and patient will benefit from aggressive volume resuscitation. Second liter of crystalloid will be ordered. Given undifferentiated upper GI bleed patient was given ceftriaxone, octreotide, Protonix. Case discussed [facility] Dr. Griffin who graciously accepted patient for transfer for continued evaluation at this time. Reason for expeditious transfer is that if his tachycardia is due to hemorrhage he is significantly volume deplete intravascularly and we do not have GI at this institution should this bleed be variceal in nature. ACS does remain on the differential and troponin was collected as well as other hematologic labs but will not change definitive need for transfer at this point.. CTA chest and abdomen was considered but will only delay transfer for definitive care will be deferred at this time. Initial hematologic labs reviewed by me, significant leukocytosis 24.1, thrombocytosis 1146, hemoglobin is 9.2, no JASPAL or critical electrolyte abnormality. Patient does not have peritonitis on my exam so broadening antibiotics will be deferred currently. Repeat evaluation patient had 1 responsive tachycardia heart rate 114. Initial troponin undetectably low. Due to delay in transfer on ground and suspected significant pathology patient will be transported via air EMS at this time. Indication: Shortness of breath Identified cardiac views: Cardiac subxiphoid Findings: Cardiac activity present, gross wall motion normal, gross ejection fraction normal, no pericardial effusion Impression: -From above Images were saved to permanent archive The study was technically adequate CPT: 22029 This study was performed by me, and I personally interpreted all images/videos. Based on my clinical judgement, these images were adequate and did not necessitate further imaging. Critical Care Critical Care Time Critical Care Time: Yes Attestation: On 04/15/24, the high probability of a clinically significant, sudden or life threatening deterioration of the following system(s) required my full and direct attention, intervention and personal management. The time I documented below is in addition to time spent performing reported procedures but includes the following listed in this critical care notation. Total Time Total Critical Care Time: 40
--- NOTE | 2024-04-15 18:25 | PC.NURSE ---
Pt accepted to [facility] by Dr. Griffin
[2024-04-15 18:27] LABS: Lipase 37 U/L (23-300)
[2024-04-15 18:32] LABS: Platelet Count 1146 K/mm3 (142-424)
[2024-04-15 18:34] LABS: MANUAL DIFFERENTIAL MANUAL DIFFERENTIAL (MANUAL DIFF)
[2024-04-15] MEDS: CEFTRIAXONE 1 GM 1 GM in 0.9 % SODIUM CHLORIDE 50 ML IV (18:34)
[2024-04-15 18:38] VITALS: BP 110/65; PULSE 114; RESP 16; O2SAT 100
[2024-04-15] MEDS: PANTOPRAZOLE SODIUM 80 MG in 0.9 % SODIUM CHLORIDE 100 ML 100 MG IV (18:41)
[2024-04-15] MEDS: OCTREOTIDE ACETATE 50 MCG in 0.9 % SODIUM CHLORIDE 50 ML 102 MCG IV (18:43)
[2024-04-15] MEDS: PANTOPRAZOLE SODIUM 80 MG in 0.9 % SODIUM CHLORIDE 100 ML 10 MG IV (18:44)
[2024-04-15 18:48] LABS: Troponin I < 0.01 ng/ml (0.00-0.034)
[2024-04-15] MEDS: OCTREOTIDE ACETATE 500 MCG in 0.9 % SODIUM CHLORIDE 250 ML 25.5 MCG IV (18:50)
--- NOTE | 2024-04-15 18:50 | PC.NURSE ---
[place] [facility] accepted for transport for pt. 22 minutes from landing
--- NOTE | 2024-04-15 18:53 | PC.NURSE ---
HOUSE NOTIFIED OF [facility] IN ETA 22 MIN
--- NOTE | 2024-04-15 19:00 | PC.NURSE ---
call made to [facility] transfer center to inform them of change in pt transportation.
--- NOTE | 2024-04-15 19:06 | PC.NURSE ---
call made to [facility] dispatch and spoke with Reginaldo about update on pt mode of transportation
--- NOTE | 2024-04-15 19:12 | PC.NURSE ---
[facility] declined for weather
--- NOTE | 2024-04-15 19:22 | PC.NURSE ---
Local EMS will be taking transfer now
--- NOTE | 2024-04-15 20:02 | PC.NURSE ---
[facility] arrived for patient transport to [facility]
[2024-04-15 20:03] VITALS: BP 132/73; PULSE 106; RESP 19; TEMP 36.8; O2SAT 99
[2024-04-15 21:11] LABS: Eosinophils % 4 % (0-3); Lymphocytes % 26 % (10-50); Neutrophils % 66 % (42-76); Nucleated Red Blood Cells 1; Promyelocytes % 2 %; Total Cells Counted 100
[2024-04-15 21:17] LABS: Giant Platelets 1+
[2024-04-15 21:18] LABS: Anisocytosis 1+; Hypochromasia 1+; Platelet Estimate Marked Increase
[2024-04-15 22:07] LABS: Reflex Lactic Add Lactic Reflex
== END 2024-04-15 20:05 | disposition short-term general hospital (02) ==
PROVIDERS: Emergency Provider Emergency Medicine; PCP Internal Medicine
DX: K92.2 Gastrointestinal hemorrhage, unspecified (principal); R10.13 Epigastric pain; R06.02 Shortness of breath; R94.31 Abnormal electrocardiogram [ECG] [EKG]; J44.9 Chronic obstructive pulmonary disease, unspecified; F17.210 Nicotine dependence, cigarettes, uncomplicated; K21.9 Gastro-esophageal reflux disease without esophagitis; F10.91 Alcohol use, unspecified, in remission
CPT/HCPCS: 80053; 82803; 83690; 84484; 85007; 85025; 85027; 93005; 96365; 96366; 96375; 99291; J0696; J2270; J2354; J2405; J7120

== ENCOUNTER 2024-04-28 10:26 | Outpatient (CLI) | payer MEDICAID, SELFPAY ==
[2024-04-28 18:05] LABS: Basophils # 0.6 K/mm3 (0-0.2); Basophils % 4.7 % (0.1-2.0); Eosinophils # 0.6 K/mm3 (0.0-0.4); Eosinophils % 4.8 % (0.1-12.0); Hemoglobin 10.1 g/dL (14.1-18.0); Lymphocytes # 2.9 K/mm3 (0.7-4.5); Lymphocytes % 23.1 % (10-50); Mean Corpuscular HGB Conc 30.5 g/dL (31.8-35.4); Mean Corpuscular Hemoglobin 30.1 pg (27.0-31.2); Mean Platelet Volume 11.8 fl (7.4-10.4); Monocytes # 0.7 K/mm3 (0.1-1.0); Monocytes % 5.6 % (1.7-9.3); Neutrophils # 7.7 K/mm3 (1.8-7.8); Neutrophils % 61.8 % (37.0-80.0); Red Blood Count 3.34 M/mm3 (4.60-6.20); Red Cell Distribution Width 16.6 % (11.5-17.5); White Blood Count 12.5 K/mm3 (4.8-10.8)
[2024-04-28 18:06] LABS: Platelet Count 1241 K/mm3 (142-424)
== END 2024-04-28 23:59 | disposition home or self-care (01) ==
LOC: LAB.DROPOF 04-29 16:09
PROVIDERS: PCP Family Medicine; Visit Provider Family Medicine
DX: D75.839 Thrombocytosis, unspecified (principal)
CPT/HCPCS: 85025

== ENCOUNTER 2024-05-05 09:12 | Outpatient (CLI) | payer MEDICAID, SELFPAY ==
[2024-05-05 18:14] LABS: MANUAL DIFFERENTIAL MANUAL DIFFERENTIAL (MANUAL DIFF)
[2024-05-05 18:20] LABS: Basophils # 0.7 K/mm3 (0-0.2); Basophils % 6.8 % (0.1-2.0); Eosinophils # 0.8 K/mm3 (0.0-0.4); Eosinophils % 8.1 % (0.1-12.0); Hematocrit 38.4 % (42.0-52.0); Lymphocytes # 3.3 K/mm3 (0.7-4.5); Lymphocytes % 31.6 % (10-50); Mean Corpuscular HGB Conc 28.5 g/dL (31.8-35.4); Mean Corpuscular Hemoglobin 28.6 pg (27.0-31.2); Mean Corpuscular Volume 100.3 fl (80-94); Mean Platelet Volume 11.2 fl (7.4-10.4); Monocytes # 0.6 K/mm3 (0.1-1.0); Monocytes % 5.6 % (1.7-9.3); Neutrophils # 5.7 K/mm3 (1.8-7.8); Neutrophils % 54.7 % (37.0-80.0); Red Blood Count 3.83 M/mm3 (4.60-6.20); Red Cell Distribution Width 16.7 % (11.5-17.5); White Blood Count 10.4 K/mm3 (4.8-10.8)
[2024-05-05 18:21] LABS: Platelet Count 1429 K/mm3 (142-424)
[2024-05-05 19:03] LABS: Acanthocytes 1+; Anisocytosis 1+; Eosinophils % 10 % (0-3); Lymphocytes % 24 % (10-50); Macrocytosis 1+; Monocytes % 8 % (2-9); Neutrophils % 55 % (42-76); Platelet Estimate Marked Increase; Tear Drop Cells 1+; Total Cells Counted 100
== END 2024-05-05 23:59 | disposition home or self-care (01) ==
LOC: LAB.DROPOF 05-08 09:12
PROVIDERS: PCP Family Medicine; Visit Provider Family Medicine
DX: D75.839 Thrombocytosis, unspecified (principal)
CPT/HCPCS: 85007; 85014; 85018; 85048; 85049

== ENCOUNTER 2024-05-12 08:45 | Outpatient (CLI) | payer MEDICAID, SELFPAY ==
[2024-05-12 18:46] LABS: Basophils # 0.9 K/mm3 (0-0.2); Basophils % 6.9 % (0.1-2.0); Eosinophils # 0.9 K/mm3 (0.0-0.4); Eosinophils % 6.6 % (0.1-12.0); Hematocrit 36.8 % (42.0-52.0); Hemoglobin 10.7 g/dL (14.1-18.0); Lymphocytes # 3.6 K/mm3 (0.7-4.5); Lymphocytes % 26.4 % (10-50); Mean Corpuscular HGB Conc 29.1 g/dL (31.8-35.4); Mean Corpuscular Hemoglobin 28.2 pg (27.0-31.2); Mean Corpuscular Volume 96.9 fl (80-94); Mean Platelet Volume 11.6 fl (7.4-10.4); Monocytes # 0.7 K/mm3 (0.1-1.0); Neutrophils # 8.4 K/mm3 (1.8-7.8); Red Cell Distribution Width 16.4 % (11.5-17.5); White Blood Count 13.6 K/mm3 (4.8-10.8)
[2024-05-12 18:50] LABS: Platelet Count 1126 K/mm3 (142-424)
== END 2024-05-12 23:59 | disposition home or self-care (01) ==
LOC: LAB.DROPOF 05-15 08:46
PROVIDERS: PCP Family Medicine; Visit Provider Family Medicine
DX: E78.5 Hyperlipidemia, unspecified (principal); K27.9 Peptic ulcer, site unspecified, unspecified as acute or chronic, without hemorrhage or perforation; B96.81 Helicobacter pylori [H. pylori] as the cause of diseases classified elsewhere
CPT/HCPCS: 85025

== ENCOUNTER 2024-05-23 09:18 | Outpatient (CLI) | payer MEDICAID, SELFPAY ==
[2024-05-23 18:51] LABS: Basophils # 0.3 K/mm3 (0-0.2); Basophils % 4.1 % (0.1-2.0); Eosinophils # 0.6 K/mm3 (0.0-0.4); Eosinophils % 9.2 % (0.1-12.0); Hematocrit 30.6 % (42.0-52.0); Hemoglobin 8.7 g/dL (14.1-18.0); Lymphocytes # 1.9 K/mm3 (0.7-4.5); Lymphocytes % 28.7 % (10-50); Mean Corpuscular HGB Conc 28.4 g/dL (31.8-35.4); Mean Corpuscular Hemoglobin 29.1 pg (27.0-31.2); Mean Corpuscular Volume 102.5 fl (80-94); Mean Platelet Volume 12.9 fl (7.4-10.4); Monocytes # 0.4 K/mm3 (0.1-1.0); Monocytes % 6.2 % (1.7-9.3); Neutrophils # 3.6 K/mm3 (1.8-7.8); Neutrophils % 55.9 % (37.0-80.0); Red Blood Count 2.99 M/mm3 (4.60-6.20); Red Cell Distribution Width 17.7 % (11.5-17.5); White Blood Count 6.5 K/mm3 (4.8-10.8)
[2024-05-23 19:02] LABS: Platelet Count 1205 K/mm3 (142-424)
== END 2024-05-23 23:59 | disposition home or self-care (01) ==
LOC: LAB.DROPOF 05-25 09:18
PROVIDERS: PCP Nurse Practitioner Family; Visit Provider Nurse Practitioner Family
DX: Z12.11 Encounter for screening for malignant neoplasm of colon (principal)
CPT/HCPCS: 85025

== ENCOUNTER 2024-05-31 09:31 | Outpatient (CLI) | payer MEDICAID, SELFPAY ==
[2024-05-31 18:51] LABS: Basophils # 0.2 K/mm3 (0-0.2); Basophils % 12.7 % (0.1-2.0); Eosinophils # 0.1 K/mm3 (0.0-0.4); Hematocrit 30.1 % (42.0-52.0); Hemoglobin 8.6 g/dL (14.1-18.0); Lymphocytes # 0.8 K/mm3 (0.7-4.5); Lymphocytes % 63.9 % (10-50); Mean Corpuscular HGB Conc 28.6 g/dL (31.8-35.4); Mean Corpuscular Hemoglobin 28.7 pg (27.0-31.2); Mean Corpuscular Volume 100.1 fl (80-94); Monocytes # 0.1 K/mm3 (0.1-1.0); Monocytes % 6.5 % (1.7-9.3); Neutrophils # 0.3 K/mm3 (1.8-7.8); Neutrophils % 22.5 % (37.0-80.0); Red Blood Count 3.01 M/mm3 (4.60-6.20); Red Cell Distribution Width 18.6 % (11.5-17.5)
[2024-05-31 19:58] LABS: Platelet Count 1505 K/mm3 (142-424); White Blood Count 1.2 K/mm3 (4.8-10.8)
[2024-05-31 19:59] LABS: MANUAL DIFFERENTIAL MANUAL DIFFERENTIAL (MANUAL DIFF)
[2024-05-31 20:14] LABS: Eosinophils % 8 % (0-3); Lymphocytes % 36 % (10-50); Monocytes % 1 % (2-9); Neutrophils % 54 % (42-76); Total Cells Counted 100
[2024-05-31 20:16] LABS: Anisocytosis 2+; Hypochromasia 3+; Macrocytosis 2+; Platelet Estimate Marked Increase
== END 2024-05-31 23:59 | disposition home or self-care (01) ==
LOC: LAB.DROPOF 06-01 09:31
PROVIDERS: PCP Family Medicine; Visit Provider Family Medicine
DX: Z12.11 Encounter for screening for malignant neoplasm of colon (principal); Z80.9 Family history of malignant neoplasm, unspecified
CPT/HCPCS: 82103; 85007; 85025; 85027

== ENCOUNTER 2024-08-07 14:07 | Outpatient (CLI) | payer MEDICAID, SELFPAY ==
[2024-08-07 14:39] LABS: Basophils # 0.1 K/mm3 (0-0.2); Basophils % 2.5 % (0.1-2.0); Eosinophils # 0.2 K/mm3 (0.0-0.4); Eosinophils % 3.7 % (0.1-12.0); Hematocrit 38.9 % (42.0-52.0); Hemoglobin 12.4 g/dL (14.1-18.0); Lymphocytes # 0.7 K/mm3 (0.7-4.5); Lymphocytes % 11.8 % (10-50); Mean Corpuscular HGB Conc 31.8 g/dL (31.8-35.4); Mean Corpuscular Hemoglobin 26.7 pg (27.0-31.2); Mean Corpuscular Volume 84.1 fl (80-94); Mean Platelet Volume 8.7 fl (7.4-10.4); Monocytes # 0.3 K/mm3 (0.1-1.0); Monocytes % 6.2 % (1.7-9.3); Neutrophils # 4.2 K/mm3 (1.8-7.8); Neutrophils % 75.8 % (37.0-80.0); Platelet Count 930 K/mm3 (142-424); Red Blood Count 4.63 M/mm3 (4.60-6.20); Red Cell Distribution Width 19.8 % (11.5-17.5); White Blood Count 5.5 K/mm3 (4.8-10.8)
== END 2024-08-07 23:59 | disposition home or self-care (01) ==
LOC: LAB 14:09
PROVIDERS: Visit Provider Nurse Practitioner Acute Care
DX: D75.839 Thrombocytosis, unspecified (principal)
CPT/HCPCS: 36415; 85025